=== PATIENT | female | born 1985 | race Asian ===

== ENCOUNTER → 2016-11-03 | Outpatient (CLI) | payer BC ==
[~2016-11-03] MED LIST: FLUT0.15 NAE; METF-384 PO
[2016-11-03 09:49] LABS: HEMATOCRIT 42.6 % (37-47); MEAN CELL VOLUME 90.6 fL (80-100); MEAN CORPUSCULAR HEMOGLOBIN 31.9 pg (25-34); MEAN CORPUSCULAR HGB CONC 35.2 g/dl (32-36); MEAN PLATELET VOLUME 9.3 fL (7.4-10.4); PLATELET COUNT 204 K/uL (130-400); WHITE BLOOD COUNT 4.38 K/uL (4.8-10.8)
[2016-11-03 10:15] LABS: INSULIN FASTING 23.2 mU/L (3-25)
[2016-11-03 10:19] LABS: ALT/SGPT 45 U/L (12-78); AST/SGOT 9 U/L (15-37); BLOOD UREA NITROGEN 11 mg/dl (7-18); CREATININE 0.65 mg/dl (0.60-1.20); GLUCOSE,FASTING 119 mg/dl (70-99)
[2016-11-03 10:22] LABS: ALKALINE PHOSPHATASE 79 U/L (45-117)
[2016-11-03 10:23] LABS: ESTIMATED AVERAGE GLUCOSE 117 mg/dl; HA1C FLAG Normal (Normal)
[2016-11-03 10:25] LABS: RUBELLA SCREEN IgG (AT CCH) IMMUNE (IMMUNE)
[2016-11-03 11:55] LABS: PROLACTIN 8.69 ng/mL
--- NOTE | 2016-11-09 11:51 | CODING QUERY MEDICAL NECESSITY ---
SUPPORTING DIAGNOSIS NEEDED A supporting diagnosis is required for the test/procedure performed on this patient in order for us to be reimbursed by the patient's insurance. Please provide a supporting diagnosis for the following test/procedure listed below next to the test name along with your signature. *If there is no additional diagnosis for this patient that would support the following test/procedure please document that below next to the test/procedure. Test(s)/Procedure(s) that require a supporting diagnosis: DOS 11/03 * Vitamin D DIAGNOSIS: * Hba1c DIAGNOSIS: Provider Signature: Date: Thank you [facility] Once completed, please kindly fax back to [phone] For questions please call [phone]
== END | disposition home or self-care (01) ==
LOC: C.LAB 08:05
PROVIDERS: ATTEND Specialist
DX: Z31.41 Encounter for fertility testing (principal); Z13.21 Encounter for screening for nutritional disorder; Z13.0 Encounter for screening for diseases of the blood and blood-forming organs and certain disorders involving the immune mechanism; E28.2 Polycystic ovarian syndrome; E55.9 Vitamin D deficiency, unspecified

== ENCOUNTER → 2016-12-19 | Outpatient (CLI) | payer BC | END | disposition home or self-care (01) | LOC: C.LABBFT 09:44 | PROVIDERS: ATTEND Specialist | DX: E28.2 Polycystic ovarian syndrome (principal) ==

== ENCOUNTER → 2017-03-31 | Outpatient (CLI) | payer BC | END | disposition home or self-care (01) | LOC: C.LAB 06:57 | PROVIDERS: ATTEND Specialist | DX: Z31.41 Encounter for fertility testing (principal) ==

== ENCOUNTER 2017-07-22 10:10 | Emergency (ER) | payer BC ==
[~2017-07-22] VITALS: Ht 157.5 cm; Wt 79.8 kg
[2017-07-22 10:16] VITALS: TEMP 36.7; Ht 157.5 cm; Wt 79.8 kg
--- NOTE | 2017-07-22 10:47 | EMERGENCY ROOM VISIT NOTE ---
ED Visit Note First contact with patient: 10:19 CHIEF COMPLAINT: Left ankle injury 3 days ago HISTORY OF PRESENT ILLNESS: Patient is a 32-year-old female who presents emergency department for evaluation of left ankle pain after an injury 3 days ago. She was carrying her dog down the steps, when she missed the last step, landed hard on her left foot and ankle. Afterwards she noted some discomfort in the lateral left ankle that was mild initially, but has progressively worsened. She had a fairly significant left ankle sprain about a year ago which required physical therapy. She did not take any medications, nor perform any interventions for her symptoms. REVIEW OF SYSTEMS: Review of systems as per HPI. All other systems reviewed were negative. At least 6 systems reviewed. PMH: Electronic medical records are reviewed and summarized as above/below. See Problem List. SOCIAL HISTORY: Patient lives at home. . Employed. PHYSICAL EXAM: Vital Signs: Reviewed Nurse's notes. MENTAL STATUS: Well- appearing 32-year-old female who is awake and alert and in no acute distress. MUSCULOSKELETAL: The left slightly ankle is swollen and tender over the lateral aspect but the skin is intact and there is no ligamentous instability. No pain over the 5th metatarsal or fibular head. Lisfranc joint is negative. There is no deformity. The foot and toes are warm and well-perfused. Sensation to pain and light touch is intact. EMERGENCY DEPARTMENT COURSE: X-ray does not reveal any acute fracture. A compression sleeve and gel splint were applied to the ankle under my direction and the position was satisfactory. The patient has crutches at home that she will use. She is well versed on rehabilitation for an ankle sprain given her injury from last year. She was encouraged to follow-up with orthopedics if she does not feel her symptoms are improving. She can resume his home exercises when pain allows. Medication reconciliation: I attest that I have personally reviewed the patient' s current medication list. Blood pressure screening: Patient was found to have a slightly elevated blood pressure due to circumstances. I do not believe that the patient requires hypertension monitoring. Differential diagnosis include foot verses ankle sprain/fracture, contusion, dislocation. L ANKLE MIN 3 VIEWS ROUTINE CLINICAL HISTORY: Left ankle pain following fall. COMPARISON: Left ankle radiographs July 06, 2016. FINDINGS: Alignment of the left ankle is anatomic. There is no acute fracture. Talar dome is intact. There is moderate posterior and plantar calcaneal spurring. IMPRESSION: No acute fracture or dislocation of the left ankle. Problem List Medical Problems: (1) Irritable Bowel Syndrome Status: Chronic (2) Left ankle sprain Status: Resolved (3) Left knee sprain Status: Resolved (4) Polycystic Ovarian Syndrome Status: Chronic Current/Historical Medications Scheduled Control Pills ( Control Pills), 1 TAB PO DAILY Fluticasone Propionate (Nasal) (Flonase Allergy Relief), 1 SPRAY KRISTIN DIRECTED Allergies Coded Allergies: Ceftriaxone (Unverified Allergy, Unknown, , 07/22/17) Cefuroxime (Unverified Allergy, Unknown, , 07/22/17) Ciprofloxacin (Unverified Allergy, Unknown, , 07/22/17) Doxycycline (Unverified Allergy, Unknown, , 07/22/17) Loperamide (Unverified Allergy, Unknown, , 07/22/17) Sulfa Antibiotics (Unverified Allergy, Unknown, , 07/22/17) Vital Signs Date Time Temp Pulse Resp B/P (MAP) Pulse Ox O2 Delivery O2 Flow Rate FiO2 07/22/17 11:10 84 18 131/78 98 07/22/17 10:16 36.7 93 20 154/108 99 Room Air Departure Information Impression Primary Impression: Left ankle sprain Referrals No Doctor, Assigned (PCP) Patient Instructions [facility] Additional Instructions Ibuprofen(Motrin, Advil) may be used for fever or pain. Use 600mg every six hours as needed. Take with food. Avoid using more than 2400mg in a 24 hour period. Do not use 2400mg per day for more than three consecutive days without physician direction. Prolonged inappropriate use can lead to stomach upset or ulcers. This medication can be taken if you need to drive, work, or perform activities which may be dangerous when taking narcotic pain medication. (AND/OR) Acetaminophen(Tylenol) may be used for fever or pain. Use 1000mg every six hours as needed. Avoid using more than 3000mg in a 24 hour period. This medication can be taken if you need to drive, work, or perform activities which may be dangerous when taking narcotic pain medication. Ice compresses for 20 minutes at a time four times daily for 2-3 days. Use the gel splint and crutches as instructed. Rest and elevate your injury. Continue current medications. Return to the ER immediately for any numbness, tingling, severe pain, extreme swelling in the extremity or as needed. Followup with your family doctor or orthopedic surgery if no improvement in 5-7 days.
[2017-07-22] MEDS ORDERED: BCPILLS PO (10:51)
[2017-07-22 11:10] VITALS: BP 131/78; PULSE 84; O2SAT 98
--- NOTE | 2017-07-22 11:11 | DIAGNOSTIC IMAGING REPORT ---
L ANKLE MIN 3 VIEWS ROUTINE CLINICAL HISTORY: Left ankle pain following fall. COMPARISON: Left ankle radiographs July 06, 2016. FINDINGS: Alignment of the left ankle is anatomic. There is no acute fracture. Talar dome is intact. There is moderate posterior and plantar calcaneal spurring. IMPRESSION: No acute fracture or dislocation of the left ankle. Electronically signed by: Hernan Guzman M.D. 07/22/2017 11:09 AM Dictated Date/Time: 07/22/2017 11:08 AM
== END 2017-07-22 11:10 | disposition home or self-care (01) ==
LOC: C.EDB 10:12
DX: S93.402A Sprain of unspecified ligament of left ankle, initial encounter (principal); W22.8XXA Striking against or struck by other objects, initial encounter; Y93.89 Activity, other specified; Y99.8 Other external cause status; E28.2 Polycystic ovarian syndrome

== ENCOUNTER → 2017-09-05 | Outpatient (CLI) | payer BC ==
[~2017-09-05] MED LIST changes: +BCPILLS PO; -METF-384 PO
--- NOTE | 2017-09-05 09:09 | DIAGNOSTIC IMAGING REPORT ---
EXAMINATION: PELVIC ULTRASOUND CLINICAL HISTORY: INFERTILITY COMPARISON STUDY: None FINDINGS: The uterus measured 62 x 35 x 37 mm.. The endometrial stripe measured 2 mm. There is a 4 x 3 x 2 mm hypoechoic nodule abutting the endometrium, possibly representing a fibroid The left ovary measured 35 x 18 x 19 mm. There are 5 dominant follicles injury 9 x 9 x 8 mm, 5 x 5 x 5 mm, 6 x 6 x 4 mm, 5 x 5 x 5 mm, and 5 x 4 x 4 mm respectively. The right ovary measured 29 x 16 x 17 mm. There are 5 dominant follicles measuring 7 x 7 x 7 mm, 7 x 5 x 6 mm, 4 x 6 x 4 mm, 10 x 7 x 6 mm, and 6 x 7 x 6 mm. There was no evidence of pathologic free pelvic fluid. IMPRESSION: Each ovary contains 5 follicles as described above. Electronically signed by: Josh Og M.D. 09/05/2017 9:07 AM Dictated Date/Time: 09/05/2017 9:04 AM
== END | disposition home or self-care (01) ==
LOC: C.ULTR 07:07
PROVIDERS: ATTEND Specialist
DX: Z31.41 Encounter for fertility testing (principal); O09.00 Supervision of pregnancy with history of infertility, unspecified trimester; Z3A.00 Weeks of gestation of pregnancy not specified

== ENCOUNTER → 2017-09-11 | Outpatient (CLI) | payer BC | END | disposition home or self-care (01) | LOC: C.LAB1850 11:33 | PROVIDERS: ATTEND Specialist | DX: Z31.41 Encounter for fertility testing (principal) ==

== ENCOUNTER → 2017-09-13 | Outpatient (CLI) | payer BC | END | disposition home or self-care (01) | LOC: C.LAB1850 08:05 | PROVIDERS: ATTEND Specialist | DX: Z31.41 Encounter for fertility testing (principal) ==

== ENCOUNTER → 2017-09-17 | Outpatient (CLI) | payer BC | END | disposition home or self-care (01) | LOC: C.LAB1850 10:05 | PROVIDERS: ATTEND Specialist | DX: Z31.41 Encounter for fertility testing (principal) ==

== ENCOUNTER → 2017-09-18 | Outpatient (CLI) | payer BC | END | disposition home or self-care (01) | LOC: C.LAB1850 08:15 | PROVIDERS: ATTEND Specialist | DX: Z31.41 Encounter for fertility testing (principal) ==

== ENCOUNTER → 2017-09-21 | Outpatient (CLI) | payer BC ==
[2017-09-21 10:40] LABS: LUTEINIZING HORMONE 64.21 IU/L
== END | disposition home or self-care (01) ==
LOC: C.LAB1850 07:46
PROVIDERS: ATTEND Specialist
DX: Z31.41 Encounter for fertility testing (principal)

== ENCOUNTER → 2017-10-03 | Outpatient (CLI) | payer BC ==
[2017-10-03 14:19] LABS: HEP C IGG 13 YRS+OLDER_RFLX NEG (NEG)
== END | disposition home or self-care (01) ==
LOC: C.LAB1850 12:11
PROVIDERS: ATTEND Specialist
DX: Z11.3 Encounter for screening for infections with a predominantly sexual mode of transmission (principal); Z11.4 Encounter for screening for human immunodeficiency virus [HIV]; Z11.59 Encounter for screening for other viral diseases

== ENCOUNTER → 2017-11-27 | Outpatient (CLI) | payer BC | END | disposition home or self-care (01) | LOC: C.LAB1850 07:48 | PROVIDERS: ATTEND Specialist | DX: O09.00 Supervision of pregnancy with history of infertility, unspecified trimester (principal); Z3A.00 Weeks of gestation of pregnancy not specified ==

== ENCOUNTER → 2017-11-29 | Outpatient (CLI) | payer BC | END | disposition home or self-care (01) | LOC: C.LAB1850 07:42 | PROVIDERS: ATTEND Specialist | DX: O09.00 Supervision of pregnancy with history of infertility, unspecified trimester (principal); Z3A.00 Weeks of gestation of pregnancy not specified ==

== ENCOUNTER → 2018-02-15 | Outpatient (CLI) | payer BC | END | disposition home or self-care (01) | LOC: C.LAB1850 10:07 | PROVIDERS: ATTEND Obstetrics & Gynecology | DX: O09.812 Supervision of pregnancy resulting from assisted reproductive technology, second trimester (principal); Z3A.00 Weeks of gestation of pregnancy not specified ==